=== PATIENT | male | born 1960 | race Caucasian/White ===

== ENCOUNTER 2019-10-15 13:01 | Inpatient (IN) ==
[2019-10-15] MEDS ORDERED: ASPIRIN 325 MG TABLET PO STA (13:22)
[2019-10-15 14:00] LABS: Basophils % 0.3 % (0.0-0.8); Eosinophils % 0.4 % (0.00-10.9); Hematocrit 35.3 VOL% (42.0-52.0); Hemoglobin 11.4 GM/DL (14.0-18.0); Immature Granulocytes % 0.4 %; Immature Granulocytes Absolute 0.04 #; Lymphocytes # 0.6 10*3/uL (1.4-4.0); Lymphocytes % 5.6 % (21.2-54.2); Mean Corpuscular HGB Conc 32.3 GM/DL (32-36); Mean Corpuscular Volume 89.6 FL (87-102); Mean Platelet Volume 9.9 FL (9.6-12.0); Monocytes % 5.1 % (1.7-12.7); Neutrophils % 88.2 % (38.7-73.9); Platelet Count 250 T/CUMM (130-400); Red Blood Count 3.94 MC/CUMM (3.8-5.5); Red Cell Distribution Width 12.5 % (9.3-17.3); White Blood Count 10.2 T/CUMM (4-12)
[2019-10-15 14:12] LABS: PT Patient Result 10.6 SECS (9.6-12.2); Partial Thromboplastin Time 27.5 SECS (20.8-36.0)
[2019-10-15 14:25] LABS: Bilirubin,Total 0.4 MG/DL (0.2-1.0); Calcium 8.8 MG/DL (8.5-10.1); Osmolality,Calculated 273.7 MOS/KG (273-304); Total Protein 6.9 G/DL (6.4-8.3)
[2019-10-15] MEDS ORDERED: GENTAMICIN INJ 140 MG in SODIUM CHLORIDE 0.9% 100 ML IV STA (14:52)
[2019-10-15] MEDS ORDERED: VANCOMYCIN INJ 1,000 MG in SODIUM CHLORIDE 0.9% 250 ML IV STA ×2 (14:52→14:55)
[2019-10-15] MEDS ORDERED: ACETAMINOPHEN 325 MG TABLET PO PRN (15:18)
[2019-10-15] MEDS ORDERED: ONDANSETRON 4 MG/2 ML VIAL IV PRN (15:18)
[2019-10-15] MEDS ORDERED: tiZANidine 4 MG TABLET PO PRN (15:26)
[2019-10-15] MEDS ORDERED: ZALEPLON 5 MG CAPSULE PO PRN (15:26)
[2019-10-15] MEDS ORDERED: ENOXAPARIN 40 MG/0.4 ML SYRINGE SUBCUT SCH (15:30)
[2019-10-15 18:12] LABS: Apearance,Urine CLEAR (Clear); Bilirubin,Urine Negative (Negative); Blood, Urine Negative (Negative); Glucose,Urine (UA) Negative (Negative); Ketones,Urine Negative (Negative); Mucus,Urine Occasional /LPF (Occasional); Nitrite,Urine Negative (Negative); Protein,Urine Negative; Urine Color Yellow (Yellow); Urine Urobilinogen < 2.0 EU/DL (0.2-1.0)
[2019-10-15 18:19] LABS: Barbiturates Screen,Urine Negative (Negative); Benzodiazepines Screen,Urine Negative (Negative); Cannabinoid Screen,Urine Negative (Negative); Opiate Screen,Urine Positive (Negative); Phencyclidine Screen,Urine Negative (Negative)
[2019-10-15] MEDS: fentaNYL 50 MCG/HR PATCH TRANSDERM SCH (19:00)
[2019-10-15] MEDS: SODIUM CHLORIDE 0.9% 1,000 ML IV SCH (19:00)
[2019-10-15] MEDS: ALBUTEROL/IPRATROPIUM 3 ML NEB RESP TX SCH (20:21)
[2019-10-15] MEDS ORDERED: FLUVOXAMINE PO SCH (21:00)
[2019-10-15] MEDS: MIRTAZAPINE 15 MG TABLET PO SCH (22:11)
[2019-10-15] MEDS: AMITRIPTYLINE 75 MG TABLET PO SCH (22:11)
[2019-10-15] MEDS: VANCOMYCIN INJ 1,000 MG in SODIUM CHLORIDE 0.9% 250 ML IV SCH (23:40)
[2019-10-16] MEDS: ALBUTEROL/IPRATROPIUM 3 ML NEB RESP TX SCH ×4 (00:25→19:10)
[2019-10-16] MEDS: CEFEPIME 1,000 MG in SODIUM CHLORIDE 0.9% 100 ML IV SCH ×4 (01:35→17:33)
[2019-10-16 04:53] LABS: Basophils # 0.1 10*3/uL (0.0-0.2); Basophils % 0.5 % (0.0-0.8); Eosinophils % 0.4 % (0.00-10.9); Hematocrit 28.9 VOL% (42.0-52.0); Immature Granulocytes Absolute 0.09 #; Lymphocytes % 10.7 % (21.2-54.2); Mean Corpuscular HGB Conc 32.2 GM/DL (32-36); Mean Corpuscular Volume 89.8 FL (87-102); Monocytes % 8.1 % (1.7-12.7); Neutrophils % 79.3 % (38.7-73.9); Platelet Count 232 T/CUMM (130-400); Red Blood Count 3.22 MC/CUMM (3.8-5.5); Red Cell Distribution Width 12.8 % (9.3-17.3); White Blood Count 9.1 T/CUMM (4-12)
[2019-10-16 04:58] LABS: Hemoglobin 9.3 GM/DL (14.0-18.0)
[2019-10-16 05:03] LABS: Calcium 8.4 MG/DL (8.5-10.1); Osmolality,Calculated 273.7 MOS/KG (273-304)
[2019-10-16] MEDS: VANCOMYCIN INJ 1,000 MG in SODIUM CHLORIDE 0.9% 250 ML IV SCH ×3 (09:34→23:47)
[2019-10-16] MEDS: PANTOPRAZOLE 40 MG TABLET PO SCH (09:35)
[2019-10-16] MEDS: AMITRIPTYLINE 75 MG TABLET PO SCH ×2 (09:35→21:07)
[2019-10-16] MEDS: SODIUM CHLORIDE 0.9% 1,000 ML IV SCH ×4 (13:42→21:45)
[2019-10-16] MEDS: MIRTAZAPINE 15 MG TABLET PO SCH (21:07)
[2019-10-17] MEDS: ALBUTEROL/IPRATROPIUM 3 ML NEB RESP TX SCH ×4 (00:20→19:14)
[2019-10-17] MEDS: CEFEPIME 1,000 MG in SODIUM CHLORIDE 0.9% 100 ML IV SCH ×5 (01:24→19:26)
[2019-10-17 06:48] LABS: Basophils % 0.4 % (0.0-0.8); Eosinophils # 0.1 10*3/uL (0.0-0.87); Eosinophils % 1.8 % (0.00-10.9); Hematocrit 24.8 VOL% (42.0-52.0); Hemoglobin 7.7 GM/DL (14.0-18.0); Immature Granulocytes % 1.6 %; Immature Granulocytes Absolute 0.08 #; Lymphocytes # 0.6 10*3/uL (1.4-4.0); Lymphocytes % 11.5 % (21.2-54.2); Mean Corpuscular Volume 93.6 FL (87-102); Monocytes % 5.2 % (1.7-12.7); Neutrophils % 79.5 % (38.7-73.9); Red Blood Count 2.65 MC/CUMM (3.8-5.5); Red Cell Distribution Width 13.2 % (9.3-17.3)
[2019-10-17 06:55] LABS: Platelet Count 169 T/CUMM (130-400)
[2019-10-17] MEDS: VANCOMYCIN INJ 1,000 MG in SODIUM CHLORIDE 0.9% 250 ML IV SCH ×2 (09:41→16:58)
[2019-10-17] MEDS: AMITRIPTYLINE 75 MG TABLET PO SCH ×3 (09:42→21:40)
[2019-10-17] MEDS: PANTOPRAZOLE 40 MG TABLET PO SCH (09:42)
[2019-10-17] MEDS: MIRTAZAPINE 15 MG TABLET PO SCH (21:41)
[2019-10-18] MEDS: VANCOMYCIN INJ 1,000 MG in SODIUM CHLORIDE 0.9% 250 ML IV SCH ×2 (00:38→07:25)
[2019-10-18] MEDS: ALBUTEROL/IPRATROPIUM 3 ML NEB RESP TX SCH ×4 (00:43→19:45)
[2019-10-18] MEDS: CEFEPIME 1,000 MG in SODIUM CHLORIDE 0.9% 100 ML IV SCH ×3 (01:44→13:00)
[2019-10-18 05:30] LABS: Basophils % 0.4 % (0.0-0.8); Eosinophils # 0.2 10*3/uL (0.0-0.87); Eosinophils % 3.9 % (0.00-10.9); Hematocrit 27.5 VOL% (42.0-52.0); Hemoglobin 8.6 GM/DL (14.0-18.0); Immature Granulocytes % 1.3 %; Immature Granulocytes Absolute 0.07 #; Lymphocytes # 0.7 10*3/uL (1.4-4.0); Lymphocytes % 12.8 % (21.2-54.2); Mean Corpuscular HGB Conc 31.3 GM/DL (32-36); Mean Corpuscular Volume 91.4 FL (87-102); Mean Platelet Volume 9.8 FL (9.6-12.0); Monocytes % 5.9 % (1.7-12.7); Neutrophils % 75.7 % (38.7-73.9); Platelet Count 219 T/CUMM (130-400); Red Blood Count 3.01 MC/CUMM (3.8-5.5); White Blood Count 5.4 T/CUMM (4-12)
[2019-10-18] MEDS: PANTOPRAZOLE 40 MG TABLET PO SCH (09:05)
[2019-10-18] MEDS: AMITRIPTYLINE 75 MG TABLET PO SCH ×2 (09:22→20:31)
[2019-10-18] MEDS: cefTRIAXone 1,000 MG in SYRINGE 1 EACH IV SCH (13:31)
[2019-10-18] MEDS: fentaNYL 50 MCG/HR PATCH TRANSDERM SCH (16:46)
[2019-10-18] MEDS: MIRTAZAPINE 15 MG TABLET PO SCH (20:31)
[2019-10-19] MEDS: ALBUTEROL/IPRATROPIUM 3 ML NEB RESP TX SCH ×3 (00:46→13:18)
[2019-10-19] MEDS: SODIUM CHLORIDE 0.9% 1,000 ML IV SCH (08:15)
[2019-10-19] MEDS: AMITRIPTYLINE 75 MG TABLET PO SCH (09:34)
[2019-10-19] MEDS: PANTOPRAZOLE 40 MG TABLET PO SCH (09:34)
[2019-10-19 11:51] VITALS: BP 111/64
[2019-10-19] MEDS: cefTRIAXone 1,000 MG in SYRINGE 1 EACH IV SCH (13:27)
== END 2019-10-19 14:14 | disposition home or self-care (01) | DRG 177 ==
LOC: N.ED 13:01 → SUATTDRO 15:18 → N.EDINP 15:18 → N.4E 18:55
PROVIDERS: ADMIT Emergency Medicine; ATTEND Hospitalist